=== PATIENT | female | born 2000 | race Hispanic/Latino ===

== ENCOUNTER 2025-06-07 07:36 | Inpatient (IN) | payer BC ==
[2025-06-07 08:07] VITALS: BMI 30.9
[2025-06-07] MEDS ORDERED: Diphenoxylate HCl/Atropine Tablet PO PRN ×2 (08:22)
[2025-06-07] MEDS ORDERED: Lidocaine 1% (PF) 30 ML VIAL SC PRN ×2 (08:22→12:01)
[2025-06-07] MEDS ORDERED: hydrALAZINE 20 MG/ML VIAL SLOW IVP PRN (08:22)
[2025-06-07] MEDS ORDERED: Tranexamic Acid 1,000 MG/10 ML VIAL IVP PRN (08:22)
[2025-06-07] MEDS ORDERED: Ibuprofen 800 MG TAB PO PRN (08:22)
[2025-06-07] MEDS ORDERED: Acetaminophen 500 MG TAB PO PRN (08:22)
[2025-06-07] MEDS ORDERED: Carboprost 250 MCG/ML AMP IM PRN (08:22)
[2025-06-07] MEDS ORDERED: HYDROcodone/Acetaminophen 5/325 mg Tablet PO PRN ×2 (08:22)
[2025-06-07] MEDS ORDERED: Oxytocin 30 units/NS 500 ML 500 ML IV SCH (08:30)
[2025-06-07 09:15] LABS: Hematocrit 37.8 % (34.9-44.5); Hemoglobin 12.1 g/dL (12.0-15.5); Mean Corpuscular Hemoglobin 26.8 pg (27.0-33.0); Mean Corpuscular Volume 83.6 fL (81.6-98.3); Platelet Count 279 10x3/uL (150-450); Red Blood Cell (RBC) Count 4.52 10x6/uL (3.90-5.03); White Blood Cell (WBC) Count 7.60 10x3/uL (3.5-10.5)
[2025-06-07 09:54] LABS: Hep B Surf Ag - L&D Non-Reactive S/CO (NonReactive)
[2025-06-07 09:56] LABS: Syphilis Antibody Index 0.07 S/CO (<1.00 Non-Reactive)
[2025-06-07] MEDS: Famotidine/PF 20 mg/2ml Vial SLOW IVP SCH (10:45)
[2025-06-07] MEDS: diphenhydrAMINE 25 MG CAP PO SCH (10:45)
[2025-06-07] MEDS: Oxytocin 30 units/NS 500 ML 500 ML IV SCH (11:28)
[2025-06-07] MEDS: Ondansetron PF 4 MG/2 ML Vial IVP PRN (12:30)
[2025-06-07] MEDS ORDERED: Ondansetron PF 4 MG/2 ML Vial IVP PRN ×3 (13:47→20:21)
[2025-06-07] MEDS ORDERED: Acetaminophen 325 MG TAB PO PRN (13:47)
[2025-06-07] MEDS ORDERED: Communication Order-Pharmacy FS SCH ×2 (14:00→20:30)
[2025-06-07] MEDS: fentaNYL 2 mcg/Ropivacaine 0.2% Epidural 100 ML CADD EPIDURAL SCH (14:27)
[2025-06-07] MEDS ORDERED: Meperidine HCl/PF 25 MG (1 mL) VIAL SLOW IVP PRN (20:21)
[2025-06-07] MEDS ORDERED: diphenhydrAMINE 50 MG/ML VIAL IVP PRN (20:21)
[2025-06-07] MEDS: Ketorolac Tromethamine 30 MG (1 mL) VIAL IVP SCH (21:52)
[2025-06-08] MEDS: diphenhydrAMINE 50 MG/ML VIAL IVP PRN (01:02)
[2025-06-08] MEDS: Ketorolac Tromethamine 30 MG (1 mL) VIAL IVP PRN (04:04)
[2025-06-08] MEDS ORDERED: Ondansetron PF 4 MG/2 ML Vial IVP PRN (06:59)
[2025-06-08] MEDS ORDERED: Bisacodyl 10 MG SUPP PR PRN (06:59)
[2025-06-08] MEDS ORDERED: Lanolin Ointment 7 GM TUBE TOP PRN (06:59)
[2025-06-08] MEDS ORDERED: Simethicone Chewable 80 MG TAB PO PRN (06:59)
[2025-06-08] MEDS ORDERED: hydrALAZINE 20 MG/ML VIAL SLOW IVP PRN (06:59)
[2025-06-08] MEDS: fentaNYL/Ropivacaine Epidural 100 ML ONE (07:34)
[2025-06-08] MEDS: Azithromycin 500 MG VIAL ONE (07:34)
[2025-06-08] MEDS: CEFAZOLIN 2 GM VIAL ONE (07:35)
[2025-06-08] MEDS: Dexamethasone 10 MG/ML VIAL ONE (07:35)
[2025-06-08] MEDS: Erythromycin Base 0.5% Oint 1 GM TUBE ONE (07:35)
[2025-06-08] MEDS: Hepatitis B Vaccine 10 MCG/0.5 ML SYR ONE (07:35)
[2025-06-08] MEDS: Oxytocin 10 UNITS/ML VIAL ONE (07:36)
[2025-06-08] MEDS: PHENYLEPHRINE-NS 100 MCG/ML 10 ML SYRINGE ONE (07:36)
[2025-06-08] MEDS: Ondansetron PF 4 MG/2 ML Vial ONE (07:36)
[2025-06-08] MEDS ORDERED: Meperidine HCl/PF 25 MG (1 mL) VIAL IM PRN (08:30)
[2025-06-08] MEDS: Ferrous Sulfate 325 MG TAB PO SCH ×2 (08:44→21:00)
[2025-06-08] MEDS: Boostrix 0.5 ML (Tdap) VIAL (>/=7 yrs of age) IM ONE (08:44)
[2025-06-08] MEDS: Ketorolac Tromethamine 30 MG (1 mL) VIAL IVP SCH (09:35)
[2025-06-08] MEDS: HYDROcodone/Acetaminophen 5/325 mg Tablet PO PRN ×2 (10:01→21:40)
[2025-06-08] MEDS: NIFEdipine XL 30 MG ER.TAB PO SCH (16:04)
[2025-06-09 04:14] LABS: Hematocrit 26.5 % (34.9-44.5); Hemoglobin 8.4 g/dL (12.0-15.5); Mean Corpuscular Hemoglobin 27.0 pg (27.0-33.0); Mean Corpuscular Volume 85.2 fL (81.6-98.3); Platelet Count 293 10x3/uL (150-450); Red Blood Cell (RBC) Count 3.11 10x6/uL (3.90-5.03); White Blood Cell (WBC) Count 9.51 10x3/uL (3.5-10.5)
[2025-06-09] MEDS: Ibuprofen 800 MG TAB PO SCH (05:34)
[2025-06-09] MEDS: NIFEdipine XL 30 MG ER.TAB PO SCH (08:50)
[2025-06-09] MEDS: diphenhydrAMINE 25 MG CAP PO PRN (14:30)
[2025-06-09] MEDS ORDERED: Lidocaine 2% MPF 10 ML AMP (For Epidural Use) ONE (18:40)
[2025-06-09] MEDS ORDERED: Bupivacaine 0.25% HCL 30 ML VIAL ONE (18:40)
[2025-06-10 12:05] VITALS: BP 103/57; TEMP 98.3
== END 2025-06-10 16:25 | disposition home or self-care (01) | DRG 788 ==
LOC: CSHLD/OP 07:36 → UNDOADMIN 10:24 → CSHLD 10:24 → CSHPED 22:30
PROVIDERS: ADMIT Family Medicine; ATTEND Family Medicine
PROC: 10D00Z1 Extraction of Products of Conception, Low, Open Approach (ICD-10-PCS; principal; 2025-06-07)
PROC: 4A1HXCZ Monitoring of Products of Conception, Cardiac Rate, External Approach (ICD-10-PCS; 2025-06-07)
PROC: 10H07YZ Insertion of Other Device into Products of Conception, Via Natural or Artificial Opening (ICD-10-PCS; 2025-06-07)
DX: O13.4 Gestational [pregnancy-induced] hypertension without significant proteinuria, complicating childbirth (principal); Z3A.39 39 weeks gestation of pregnancy; Z79.899 Other long term (current) drug therapy; Z79.82 Long term (current) use of aspirin; Z37.0 Single live birth
CPT/HCPCS: 36415; 51702; 85027; 86780; 86850; 86900; 86901; 87340; 99285; C1889; J0665; J1100; J1200; J1885; J2274; J2405; J2590; J3010; J7120